=== PATIENT | female | born 1985 | race African-American/Black ===

== ENCOUNTER 2016-12-14 15:10 | Emergency (ER) | payer SELFPAY ==
[~2016-12-14] VITALS: Ht 180.3 cm; Wt 90.7 kg
[2016-12-14 15:14] VITALS: BP 148/99
[2016-12-14] MEDS ORDERED: IBUPROFEN 600 MG TABLET PO ONE ×2 (15:32→16:00)
== END 2016-12-14 16:47 | disposition home or self-care (01) ==
LOC: ER 15:13
DX: S16.1XXA Strain of muscle, fascia and tendon at neck level, initial encounter (principal); M54.5 Low back pain; Z91.048 Other nonmedicinal substance allergy status; V43.52XA Car driver injured in collision with other type car in traffic accident, initial encounter; Y93.89 Activity, other specified; Y92.89 Other specified places as the place of occurrence of the external cause; Y99.9 Unspecified external cause status
CPT/HCPCS: 72100; 72125; 99284; A4606; Z7610